=== PATIENT | female | born 1985 | race Caucasian/White ===

== ENCOUNTER 2016-12-20 18:39 | Emergency (ER) | payer OTHER ==
[~2016-12-20] VITALS: Ht 167.6 cm; Wt 81.8 kg
[2016-12-20 18:39] VITALS: BP 138/71; PULSE 80; RESP 18; O2SAT 98
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
[2016-12-20] MEDS ORDERED: TdaP Vaccine 0.5 mL Inj IM ONE (21:35)
[2016-12-20 22:00] VITALS: BP 137/86; PULSE 85; RESP 16; O2SAT 98
[2016-12-20 22:03] VITALS: BP 137/86; PULSE 85; RESP 16; O2SAT 98
== END 2016-12-20 22:04 | disposition home or self-care (01) ==
LOC: SED 19:08
DX: S50.02XA Contusion of left elbow, initial encounter (principal); S61.217A Laceration without foreign body of left little finger without damage to nail, initial encounter; M79.671 Pain in right foot; M25.561 Pain in right knee; V49.40XA Driver injured in collision with unspecified motor vehicles in traffic accident, initial encounter; Y93.89 Activity, other specified; Y99.8 Other external cause status; Y92.410 Unspecified street and highway as the place of occurrence of the external cause; Z23 Encounter for immunization; Z88.8 Allergy status to other drugs, medicaments and biological substances

== ENCOUNTER 2017-01-01 18:14 | Emergency (ER) | payer OTHER ==
[2017-01-01 18:18] VITALS: BP 104/70; PULSE 84; O2SAT 96
== END 2017-01-01 19:30 | disposition home or self-care (01) ==
LOC: SED 18:14
DX: Z48.02 Encounter for removal of sutures (principal)